=== PATIENT | male | born 1935 | race Hispanic/Latino ===

== ENCOUNTER 2021-06-05 08:58 | Inpatient (IN) | payer OTHER ==
[~2021-06-05] VITALS: Ht 175.3 cm; Wt 65.8 kg
[~2021-06-05 08:58] MED LIST: ACET-66 PO; ASPI-556 PO; FOLI1TAB15 PO; LISI10TA24 PO; METF-444 PO; MONT10TA32 PO; PANT40TA54 PO; TRAM50TA4 PO
[2021-06-05 09:09] VITALS: BP 133/66
[2021-06-05] MEDS ORDERED: TRAMADOL HCL 50 MG TABLET ONE (09:46)
[2021-06-05] MEDS ORDERED: TRAMADOL HCL 50 MG TABLET PO ONE (10:00)
[2021-06-05] MEDS ORDERED: SITA50TA PO (10:13)
[2021-06-05] MEDS ORDERED: LOVA40TA2 PO (10:13)
[2021-06-05] MEDS ORDERED: FERS325 PO (10:13)
[2021-06-05] MEDS ORDERED: DONE5TAB33 PO ×2 (10:13→13:27)
[2021-06-05] MEDS ORDERED: LISI2.5T13 PO (10:13)
[2021-06-05 10:49] LABS: BASOPHILS % (AUTO) 0.4 % (0.0-5.0); EOSINOPHILS % (AUTO) 0.2 % (0.0-8.0); HEMATOCRIT 34.4 % (42-54); LYMPHOCYTES % (AUTO) 8.6 % (21.0-51.0); MEAN CORPUSCULAR HEMOGLOBIN 31.2 pg (27.0-33.0); MEAN CORPUSCULAR HGB CONC 33.4 g/dL (32.0-36.0); MEAN CORPUSCULAR VOLUME 93.2 fL (79-99); MONOCYTES % (AUTO) 7.6 % (3.0-13.0); NEUTROPHILS % (AUTO) 82.9 % (40.0-77.0); PLATELET COUNT (AUTO) 187 K/uL (130-400); RED BLOOD CELL COUNT(AUTO) 3.69 MIL/uL (4.50-6.20); WHITE BLOOD COUNT (AUTO) 9.5 K/uL (4.8-10.8)
[2021-06-05 10:58] LABS: INR 1.09 (0.85-1.15); PROTHROMBIN TIME 11.8 SEC (9.6-11.6)
[2021-06-05 10:59] LABS: CARBON DIOXIDE 27 mmol/L (21-32); CHLORIDE 101 mmol/L (101-111); CREATININE 1.1 mg/dL (0.5-1.5); GLOMERULAR FILTR. RATE CALC 67 mL/min (>60); GLUCOSE,RANDOM 202 mg/dL (70-105); POTASSIUM 4.4 mmol/L (3.5-5.1); SODIUM SERUM 138 mmol/L (136-145); UREA NITROGEN, BLOOD 26 mg/dL (7-18)
[2021-06-05 11:10] VITALS: BP 146/75
[2021-06-05 11:13] LABS: ALANINE AMINOTRANSFERASE 30 U/L (12-78); ALBUMIN 3.8 g/dL (3.5-5.0); ASPARTATE AMINOTRANSFERASE 33 U/L (10-37); BILIRUBIN,TOTAL 1.5 mg/dL (0.2-1.0); CREATINE KINASE, TOTAL 338 U/L (21-232); MYOGLOBIN 162 ng/mL (10-92); TOTAL PROTEIN, SERUM 7.4 g/dL (6.0-8.3); TROPONIN I < 0.04 ng/mL (0.00-0.06)
[2021-06-05] MEDS ORDERED: UMEC62.5 IH (13:27)
[2021-06-05] MEDS ORDERED: FLUT1AER IH (13:27)
[2021-06-05] MEDS ORDERED: ALBU8.5H8 IH (13:27)
[2021-06-05] MEDS ORDERED: TRAM50TA4 PO (13:27)
[2021-06-05] MEDS ORDERED: ONDANSETRON 4MG INJ IVP PRN (15:30)
[2021-06-05] MEDS ORDERED: MORPHINE 2 MG SYG IVP PRN (15:30)
[2021-06-05] MEDS ORDERED: DEXTROSE 50%-WATER 50 ML DISP.SYRIN IV PRN ×2 (15:30→19:30)
[2021-06-05] MEDS ORDERED: ACETAMINOPHEN 325 MG TAB PO PRN ×3 (15:30→19:30)
[2021-06-05] MEDS ORDERED: GLUCAGON 1MG KIT 1 MG ML IM PRN ×2 (15:30→19:30)
[2021-06-05] MEDS: 0.9%NACL 1000ML 1,000 ML IV SCH (15:31)
[2021-06-05] MEDS ORDERED: INSULIN R PO SS1 SQ SCH (16:30)
[2021-06-05 17:48] VITALS: BP 126/60
[2021-06-05 18:38] VITALS: BP 133/77
[2021-06-05] MEDS ORDERED: POTASSIUM CHLORIDE 10% ELIXIR 20 MEQ/15 ML UDCUP PO PRN (19:30)
[2021-06-05] MEDS ORDERED: KCL 20 MEQ ERTAB PO PRN (19:30)
[2021-06-05] MEDS ORDERED: MAG/ALUM/SIMETH 30 ML UDCUP PO PRN (19:30)
[2021-06-05] MEDS ORDERED: DiphenhydrAMINE HCL 50 MG/ML VIAL IV PRN (19:30)
[2021-06-05] MEDS ORDERED: DIPHENHYDRAMINE HCL 25 MG CAPSULE PO PRN (19:30)
[2021-06-05] MEDS ORDERED: LIDOCAINE HCL-MPF 1% 2ML VIAL IV PRN (19:30)
[2021-06-05] MEDS ORDERED: POTASSIUM CHLORIDE 20MEQ/100ML 100 ML IV PRN (19:30)
[2021-06-05 20:00] VITALS: BP 114/66
[2021-06-05] MEDS ORDERED: ALBUTEROL INHALER 90MCG/INH IH PRN (20:00)
[2021-06-05] MEDS: INSULIN HUMULIN R 100 UNIT/ML 3ML SQ SCH (21:00)
[2021-06-05] MEDS: LISINOPRIL 2.5 MG TABLET PO SCH (21:41)
[2021-06-05] MEDS: GABAPENTIN 100 MG CAPSULE PO SCH (21:41)
[2021-06-05] MEDS: METFORMIN HCL 500 MG TABLET PO SCH (21:41)
[2021-06-05 21:53] LABS: APPEARANCE,URINE Clear (CLEAR); BILIRUBIN,URINE Negative (NEGATIVE); COLOR,URINE Yellow (YELLOW); GLUCOSE, URINE (UA) 500 mg/dL (NEGATIVE); KETONES,URINE Trace mg/dL (NEGATIVE); LEUKOCYTE ESTERASE ,URINE Negative (NEGATIVE); NITRATE,URINE Negative (NEGATIVE); OCCULT BLOOD,URINE Negative (NEGATIVE); PH,URINE 5.5 (5.0-8.0); PROTEIN,URINE Negative (NEGATIVE)
[2021-06-05 22:06] LABS: BACTERIA,URINE None Seen /HPF (None Seen); RBC,URINE None Seen /HPF (0-1); SQUAMOUS EPITHELIAL CELL,UR None Seen /HPF (0-2); WBC,URINE 0-1 /HPF (0-1)
[2021-06-06] VITALS: BP 116/47
[2021-06-06] MEDS: 0.9%NACL 1000ML 1,000 ML IV SCH ×2 (03:25→03:59)
[2021-06-06 05:00] VITALS: BP 117/63
[2021-06-06 05:37] LABS: HEMATOCRIT 35.3 % (42-54); MEAN CORPUSCULAR HEMOGLOBIN 30.9 pg (27.0-33.0); MEAN CORPUSCULAR HGB CONC 32.3 g/dL (32.0-36.0); MEAN CORPUSCULAR VOLUME 95.7 fL (79-99); RED BLOOD CELL COUNT(AUTO) 3.69 MIL/uL (4.50-6.20); RED CELL DISTRIBUTION WIDTH 13.2 % (11.0-15.5); WHITE BLOOD COUNT (AUTO) 7.8 K/uL (4.8-10.8)
[2021-06-06 05:50] LABS: CREATININE 0.9 mg/dL (0.5-1.5); POTASSIUM 3.7 mmol/L (3.5-5.1)
[2021-06-06] MEDS: INSULIN HUMULIN R 100 UNIT/ML 3ML SQ SCH ×4 (06:15→21:00)
[2021-06-06 08:00] VITALS: BP 111/59
[2021-06-06] MEDS: PANTOPRAZOLE 40 MG TAB DR PO SCH (08:18)
[2021-06-06] MEDS: FOLIC ACID 1 MG TABLET PO SCH (08:18)
[2021-06-06] MEDS: SIMVASTATIN 10 MG TABLET PO SCH (08:18)
[2021-06-06] MEDS: DONEPEZIL HCL 5 MG TAB PO SCH (08:18)
[2021-06-06] MEDS: GABAPENTIN 100 MG CAPSULE PO SCH ×4 (08:19→21:13)
[2021-06-06] MEDS: FERROUS SULFATE 325 MG TABLET.DR PO SCH (08:19)
[2021-06-06] MEDS: ASPIRIN 81 MG EC TAB PO SCH (08:19)
[2021-06-06] MEDS: METFORMIN HCL 500 MG TABLET PO SCH ×2 (08:19→21:13)
[2021-06-06] MEDS: MONTELUKAST SODIUM 10 MG TAB PO SCH (08:19)
[2021-06-06] MEDS: BREO ELLIPTA 100-25 MCG INH IH SCH (08:20)
[2021-06-06] MEDS: ENOXAPARIN SODIUM 30 MG/0.3 ML SQ SCH (08:20)
[2021-06-06] MEDS: TRAMADOL HCL 50 MG TABLET PO PRN ×2 (08:56→17:40)
[2021-06-06] MEDS ORDERED: LACTULOSE 20 GM/30 ML UDCUP PO PRN (09:00)
[2021-06-06] MEDS: LIDOCAINE 5% TOPICAL PATCH TP SCH (11:37)
[2021-06-06] MEDS: POLYETHYLENE GLYCOL 3350 17 GM POWD.PACK PO SCH (11:37)
[2021-06-06 11:57] VITALS: BP 92/57
[2021-06-06] MEDS: CALCITONIN 3.7 ML AEROSOL NS SCH (15:48)
[2021-06-06 16:00] VITALS: BP 116/65
[2021-06-06 20:00] VITALS: BP 114/60
[2021-06-06] MEDS: LISINOPRIL 2.5 MG TABLET PO SCH (21:13)
[2021-06-07] VITALS (7 sets, daily range): BP systolic 118–149; BP diastolic 63–77
[2021-06-07] MEDS: 0.9%NACL 1000ML 1,000 ML IV SCH ×2 (03:46→20:50)
[2021-06-07] MEDS: INSULIN HUMULIN R 100 UNIT/ML 3ML SQ SCH ×4 (06:12→20:12)
[2021-06-07] MEDS: TRAMADOL HCL 50 MG TABLET PO PRN ×2 (06:46→20:17)
[2021-06-07] MEDS: DONEPEZIL HCL 5 MG TAB PO SCH (08:29)
[2021-06-07] MEDS: FOLIC ACID 1 MG TABLET PO SCH (08:30)
[2021-06-07] MEDS: GABAPENTIN 100 MG CAPSULE PO SCH ×3 (08:30→20:11)
[2021-06-07] MEDS: METFORMIN HCL 500 MG TABLET PO SCH ×2 (08:30→20:11)
[2021-06-07] MEDS: MONTELUKAST SODIUM 10 MG TAB PO SCH (08:30)
[2021-06-07] MEDS: POLYETHYLENE GLYCOL 3350 17 GM POWD.PACK PO SCH (08:31)
[2021-06-07] MEDS: FERROUS SULFATE 325 MG TABLET.DR PO SCH (08:31)
[2021-06-07] MEDS: ASPIRIN 81 MG EC TAB PO SCH (08:31)
[2021-06-07] MEDS: LIDOCAINE 5% TOPICAL PATCH TP SCH (08:31)
[2021-06-07] MEDS: SIMVASTATIN 10 MG TABLET PO SCH (08:31)
[2021-06-07] MEDS: PANTOPRAZOLE 40 MG TAB DR PO SCH (08:31)
[2021-06-07] MEDS: ENOXAPARIN SODIUM 30 MG/0.3 ML SQ SCH (08:32)
[2021-06-07] MEDS: BREO ELLIPTA 100-25 MCG INH IH SCH (08:32)
[2021-06-07] MEDS: CALCITONIN 3.7 ML AEROSOL NS SCH (08:34)
[2021-06-07] MEDS ORDERED: BISACODYL 10 MG SUPP.RECT RC PRN (10:00)
[2021-06-07] MEDS ORDERED: LACTULOSE 20 GM/30 ML UDCUP PO PRN (10:00)
[2021-06-07] MEDS ORDERED: LACT PO (10:02)
[2021-06-07] MEDS ORDERED: LIDOP TP (10:02)
[2021-06-07] MEDS ORDERED: POLY17PO4 PO (10:02)
[2021-06-07] MEDS ORDERED: TRAM50TA4 PO (10:02)
[2021-06-07] MEDS ORDERED: GABA300S PO (10:04)
[2021-06-07] MEDS ORDERED: CALC400I IM (10:07)
[2021-06-07] MEDS: LISINOPRIL 2.5 MG TABLET PO SCH (20:11)
[2021-06-08 03:47] VITALS: BP 129/68
[2021-06-08] MEDS: INSULIN HUMULIN R 100 UNIT/ML 3ML SQ SCH ×4 (06:18→20:11)
[2021-06-08 08:00] VITALS: BP 141/74
[2021-06-08] MEDS: BREO ELLIPTA 100-25 MCG INH IH SCH (09:00)
[2021-06-08] MEDS: 0.9%NACL 1000ML 1,000 ML IV SCH (10:10)
[2021-06-08] MEDS: SIMVASTATIN 10 MG TABLET PO SCH (10:45)
[2021-06-08] MEDS: PANTOPRAZOLE 40 MG TAB DR PO SCH (10:45)
[2021-06-08] MEDS: METFORMIN HCL 500 MG TABLET PO SCH ×2 (10:45→20:11)
[2021-06-08] MEDS: POLYETHYLENE GLYCOL 3350 17 GM POWD.PACK PO SCH (10:46)
[2021-06-08] MEDS: ENOXAPARIN SODIUM 30 MG/0.3 ML SQ SCH (10:46)
[2021-06-08] MEDS: FOLIC ACID 1 MG TABLET PO SCH (10:46)
[2021-06-08] MEDS: DONEPEZIL HCL 5 MG TAB PO SCH (10:46)
[2021-06-08] MEDS: MONTELUKAST SODIUM 10 MG TAB PO SCH (10:46)
[2021-06-08] MEDS: GABAPENTIN 100 MG CAPSULE PO SCH ×3 (10:46→20:08)
[2021-06-08] MEDS: FERROUS SULFATE 325 MG TABLET.DR PO SCH (10:46)
[2021-06-08] MEDS: LIDOCAINE 5% TOPICAL PATCH TP SCH (10:46)
[2021-06-08] MEDS: ASPIRIN 81 MG EC TAB PO SCH (10:46)
[2021-06-08] MEDS: CALCITONIN 3.7 ML AEROSOL NS SCH (10:50)
[2021-06-08 12:00] VITALS: BP 154/69
[2021-06-08 16:28] VITALS: BP 129/96
[2021-06-08] MEDS: TRAMADOL HCL 50 MG TABLET PO PRN (17:33)
[2021-06-08] MEDS: LISINOPRIL 2.5 MG TABLET PO SCH (20:11)
[2021-06-08 20:32] VITALS: BP 128/81
[2021-06-08 23:46] VITALS: BP 114/62
[2021-06-09 04:00] VITALS: BP 123/76
[2021-06-09] MEDS: INSULIN HUMULIN R 100 UNIT/ML 3ML SQ SCH ×2 (05:47→14:35)
[2021-06-09 08:00] VITALS: BP 123/67
[2021-06-09] MEDS: BREO ELLIPTA 100-25 MCG INH IH SCH (09:00)
[2021-06-09] MEDS: DONEPEZIL HCL 5 MG TAB PO SCH (09:10)
[2021-06-09] MEDS: ASPIRIN 81 MG EC TAB PO SCH (09:10)
[2021-06-09] MEDS: GABAPENTIN 100 MG CAPSULE PO SCH ×2 (09:10→14:22)
[2021-06-09] MEDS: FERROUS SULFATE 325 MG TABLET.DR PO SCH (09:10)
[2021-06-09] MEDS: FOLIC ACID 1 MG TABLET PO SCH (09:10)
[2021-06-09] MEDS: SIMVASTATIN 10 MG TABLET PO SCH (09:19)
[2021-06-09] MEDS: POLYETHYLENE GLYCOL 3350 17 GM POWD.PACK PO SCH (09:19)
[2021-06-09] MEDS: PANTOPRAZOLE 40 MG TAB DR PO SCH (09:19)
[2021-06-09] MEDS: MONTELUKAST SODIUM 10 MG TAB PO SCH (09:19)
[2021-06-09] MEDS: METFORMIN HCL 500 MG TABLET PO SCH (09:19)
[2021-06-09] MEDS: LIDOCAINE 5% TOPICAL PATCH TP SCH (09:20)
[2021-06-09] MEDS: ENOXAPARIN SODIUM 30 MG/0.3 ML SQ SCH (09:20)
[2021-06-09] MEDS: 0.9%NACL 1000ML 1,000 ML IV SCH (10:10)
[2021-06-09 12:00] VITALS: BP 90/53
== END 2021-06-09 17:28 | DRG 552 ==
LOC: EDH 08:58 → EDHIP 12:41 → OBSVTOIN 12:41 → 3BH 18:32
PROVIDERS: ADMIT Internal Medicine; ATTEND Internal Medicine
DX: S32.029A Unspecified fracture of second lumbar vertebra, initial encounter for closed fracture (principal); F11.20 Opioid dependence, uncomplicated; K21.9 Gastro-esophageal reflux disease without esophagitis; J44.9 Chronic obstructive pulmonary disease, unspecified; I12.9 Hypertensive chronic kidney disease with stage 1 through stage 4 chronic kidney disease, or unspecified chronic kidney disease; H90.5 Unspecified sensorineural hearing loss; E78.5 Hyperlipidemia, unspecified; D63.8 Anemia in other chronic diseases classified elsewhere; E11.22 Type 2 diabetes mellitus with diabetic chronic kidney disease; E11.42 Type 2 diabetes mellitus with diabetic polyneuropathy; E11.51 Type 2 diabetes mellitus with diabetic peripheral angiopathy without gangrene; F03.90 Unspecified dementia, unspecified severity, without behavioral disturbance, psychotic disturbance, mood disturbance, and anxiety; I65.29 Occlusion and stenosis of unspecified carotid artery; I70.8 Atherosclerosis of other arteries; J30.9 Allergic rhinitis, unspecified; J32.9 Chronic sinusitis, unspecified; M17.11 Unilateral primary osteoarthritis, right knee; M47.9 Spondylosis, unspecified; M48.061 Spinal stenosis, lumbar region without neurogenic claudication; N18.2 Chronic kidney disease, stage 2 (mild); Z20.822 Contact with and (suspected) exposure to COVID-19; W11.XXXA Fall on and from ladder, initial encounter; Y93.89 Activity, other specified; Y92.096 Garden or yard of other non-institutional residence as the place of occurrence of the external cause; Y99.8 Other external cause status; Z88.2 Allergy status to sulfonamides; Z88.8 Allergy status to other drugs, medicaments and biological substances; Z79.51 Long term (current) use of inhaled steroids; Z79.82 Long term (current) use of aspirin; Z79.84 Long term (current) use of oral hypoglycemic drugs; Z79.899 Other long term (current) drug therapy; Z85.118 Personal history of other malignant neoplasm of bronchus and lung; Z83.3 Family history of diabetes mellitus; Z82.5 Family history of asthma and other chronic lower respiratory diseases; Z82.49 Family history of ischemic heart disease and other diseases of the circulatory system; Z82.3 Family history of stroke; Z82.0 Family history of epilepsy and other diseases of the nervous system
CPT/HCPCS: 36415; 70450; 71045; 72125; 72148; 74176; 80048; 80053; 81001; 82550; 82948; 83874; 84484; 85025; 85027; 85610; 87635; 93005; 97039; G0378; J1650; J7030

== ENCOUNTER → 2022-12-03 | Outpatient (CLI) | payer OTHER ==
[~2022-12-03] MED LIST changes: +ALBU8.5H8 IH; +CALC400I IM; +DONE5TAB33 PO; +FERS325 PO; +FLUT1AER IH; +GABA300S PO; +LACT PO; +LIDOP TP; -LISI10TA24 PO; +LISI2.5T13 PO; +LOVA40TA2 PO; +MONT-39 PO; -MONT10TA32 PO; +POLY17PO4 PO; +SITA50TA PO; +UMEC62.5 IH
== END | disposition home or self-care (01) ==
LOC: RAH 10:18
PROVIDERS: ATTEND Internal Medicine
DX: M17.11 Unilateral primary osteoarthritis, right knee (principal); M25.561 Pain in right knee; W19.XXXA Unspecified fall, initial encounter
CPT/HCPCS: 73560

== ENCOUNTER 2023-04-15 20:27 | Emergency (ER) | payer OTHER ==
[~2023-04-15] VITALS: Ht 162.6 cm; Wt 62.1 kg
[~2023-04-15 20:27] MED LIST changes: -GABA300S PO; +GABA300S3 PO
[2023-04-15 20:43] VITALS: BP 119/78
[2023-04-15] MEDS ORDERED: DIPH,PERTUSS(ACELL),TET VAC/PF 0.5 ML VIAL IM ONE (21:00)
[2023-04-15] MEDS ORDERED: TETANUS/DIPHTHERIA TOXOID [ADULT] 0.5 ML VIAL IM ONE (21:02)
== END 2023-04-15 21:10 | disposition home or self-care (01) ==
LOC: EDH 20:27
DX: S51.812A Laceration without foreign body of left forearm, initial encounter (principal); X58.XXXA Exposure to other specified factors, initial encounter; Y93.89 Activity, other specified; Y92.89 Other specified places as the place of occurrence of the external cause; Y99.8 Other external cause status
CPT/HCPCS: 12002; 90471; 90714

== ENCOUNTER 2023-11-26 04:40 | Observation (INO) | payer OTHER, MEDICARE ==
[~2023-11-26] VITALS: Ht 170.2 cm; Wt 61.6 kg
[2023-11-26] VITALS (7 sets, daily range): BP systolic 129–165; BP diastolic 69–83; PULSE 60–75; RESP 18–20; O2SAT 97–99
[2023-11-26 05:06] LABS: BASOPHILS # (AUTO) 0.11 K/uL (0.00-0.20); BASOPHILS % (AUTO) 1.7 % (0.0-5.0); EOSINOPHILS # (AUTO) 0.52 K/uL (0.00-0.70); EOSINOPHILS % (AUTO) 7.9 % (0.0-8.0); HEMATOCRIT 28.2 % (42-54); IMMATURE GRANULOCYTE ABSOLUTE 0.02 K/uL (0-1); LYMPHOCYTES # (AUTO) 1.4 K/uL (1.0-4.8); LYMPHOCYTES % (AUTO) 21.8 % (21.0-51.0); MEAN CORPUSCULAR HEMOGLOBIN 29.9 pg (27.0-33.0); MEAN CORPUSCULAR VOLUME 90.7 fL (79-99); MONOCYTES # (AUTO) 0.7 K/uL (0.1-1.0); MONOCYTES % (AUTO) 11.2 % (3.0-13.0); NEUTROPHILS # (AUTO) 3.8 K/uL (1.8-7.7); NEUTROPHILS % (AUTO) 57.1 % (40.0-77.0); PLATELET COUNT (AUTO) 250 K/uL (130-400); RED BLOOD CELL COUNT(AUTO) 3.11 MIL/uL (4.50-6.20); WHITE BLOOD COUNT (AUTO) 6.6 K/uL (4.8-10.8)
[2023-11-26 05:16] LABS: CREATININE 1.1 mg/dL (0.5-1.5); POTASSIUM 4.1 mmol/L (3.5-5.1)
[2023-11-26 05:20] LABS: INR <= 0.93 (0.85-1.15); PROTHROMBIN TIME 10.8 SEC (9.6-11.6)
[2023-11-26 05:22] LABS: PARTIAL THROMBOPLASTIN TIME 29.3 SEC (26.3-35.5)
[2023-11-26] MEDS: ONDANSETRON 4MG INJ IVP ONE (05:22)
[2023-11-26] MEDS: FAMOTIDINE 20MG VIAL IV ONE (05:22)
[2023-11-26] MEDS: PANTOPRAZOLE 40 MG/VIAL IVP ONE (05:22)
[2023-11-26] MEDS: 0.9%NACL 1000ML 1,000 ML IV SCH ×2 (05:22→10:50)
[2023-11-26 05:29] LABS: ALBUMIN 3.7 g/dL (3.5-5.0); BILIRUBIN,TOTAL 0.5 mg/dL (0.2-1.0); TOTAL PROTEIN, SERUM 7.1 g/dL (6.0-8.3)
[2023-11-26] MEDS ORDERED: IOHEXOL-350 75 ML VIAL IV ONE (06:13)
[2023-11-26 08:16] LABS: APPEARANCE,URINE CLEAR (CLEAR); BILIRUBIN,URINE NEGATIVE (NEGATIVE); COLOR,URINE COLORLESS (YELLOW); GLUCOSE, URINE (UA) 30 mg/dL (NEGATIVE); KETONES,URINE NEGATIVE (NEGATIVE); LEUKOCYTE ESTERASE ,URINE NEGATIVE Leu/uL (NEGATIVE); NITRATE,URINE NEGATIVE (NEGATIVE); OCCULT BLOOD,URINE NEGATIVE (NEGATIVE); PH,URINE 5.5 (5.0-8.0); PROTEIN,URINE NEGATIVE (NEGATIVE); UROBILINOGEN,URINE 0.2 mg/dL (0.2-1.0)
[2023-11-26 08:19] LABS: ADD UA MICROSCOPIC YES
[2023-11-26 08:21] LABS: RBC,URINE 0-1 /HPF (0-1); WBC,URINE 0-1 /HPF (0-1)
[2023-11-26 08:22] LABS: BACTERIA,URINE None Seen /HPF (None Seen)
[2023-11-26] MEDS ORDERED: ONDANSETRON 4MG INJ IVP PRN (10:00)
[2023-11-26] MEDS ORDERED: ACETAMINOPHEN 325 MG TAB PO PRN (10:00)
[2023-11-26 10:33] LABS: HEMATOCRIT 27.7 % (42-54)
[2023-11-26] MEDS ORDERED: ALBU2.5V2 IH (11:17)
[2023-11-26] MEDS ORDERED: ALBUTEROL 0.083% 2.5 MG/3 ML INH IH PRN (11:30)
[2023-11-26] MEDS ORDERED: POTASSIUM CHLORIDE 10% ELIXIR 20 MEQ/15 ML UDCUP PO PRN (12:00)
[2023-11-26] MEDS ORDERED: GLUCAGON 1MG KIT 1 MG ML IM PRN (12:00)
[2023-11-26] MEDS ORDERED: LACTULOSE 20 GM/30 ML UDCUP PO PRN (12:00)
[2023-11-26] MEDS ORDERED: HYDRALAZINE HCL 10 MG TABLET PO PRN (12:00)
[2023-11-26] MEDS ORDERED: DEXTROSE 50%-WATER 50 ML DISP.SYRIN IV PRN (12:00)
[2023-11-26] MEDS ORDERED: GUAIFENESIN-DM 200/20 MG 10 ML PO PRN (12:00)
[2023-11-26] MEDS ORDERED: MAG/ALUM/SIMETH 30 ML UDCUP PO PRN (12:00)
[2023-11-26] MEDS ORDERED: KCL 20 MEQ ERTAB PO PRN (12:00)
[2023-11-26] MEDS ORDERED: HYDRALAZINE 20MG/ML VIAL IV PRN (12:00)
[2023-11-26] MEDS ORDERED: POTASSIUM CHLORIDE 20MEQ/100ML 100 ML IV PRN ×2 (12:00)
[2023-11-26 16:53] LABS: HEMATOCRIT 28.5 % (42-54)
[2023-11-26] MEDS: ALBUTEROL 0.083% 2.5 MG/3 ML INH IH SCH (19:17)
[2023-11-26] MEDS: PANTOPRAZOLE 40 MG/VIAL IVP SCH (20:53)
[2023-11-27] VITALS (15 sets, daily range): BP systolic 115–154; BP diastolic 58–78; PULSE 60–89; RESP 0–18; O2SAT 98
[2023-11-27] MEDS: FOLIC ACID 1 MG TABLET PO SCH (09:31)
[2023-11-27 10:28] LABS: HEMATOCRIT 30.9 % (42-54); MEAN CORPUSCULAR HEMOGLOBIN 29.1 pg (27.0-33.0); MEAN CORPUSCULAR VOLUME 90.9 fL (79-99); RED BLOOD CELL COUNT(AUTO) 3.4 MIL/uL (4.50-6.20); RED CELL DISTRIBUTION WIDTH 13.8 % (11.0-15.5); WHITE BLOOD COUNT (AUTO) 6.4 K/uL (4.8-10.8)
[2023-11-27 10:37] LABS: POTASSIUM 4.3 mmol/L (3.5-5.1)
[2023-11-27] MEDS ORDERED: LIDOCAINE HCL 1% 20 ML VIAL ONE (13:00)
[2023-11-27] MEDS ORDERED: PROPOFOL 10 MG/ML 20ML VIAL IV ONE (13:00)
[2023-11-27] MEDS ORDERED: EPHEDRINE SULFATE 50 MG/ML AMPULE ONE (13:15)
[2023-11-27] MEDS ORDERED: PANT40TA54 PO (17:36)
[2023-11-28] MEDS ORDERED: PANTOPRAZOLE 40 MG TAB DR PO SCH (09:00)
== END 2023-11-27 18:20 | disposition home or self-care (01) ==
LOC: EDH 04:40 → INTOOBSV 09:41 → EDHIP 09:41 → 3CH 11:40 → 3BH 19:00
PROVIDERS: ADMIT Internal Medicine; ATTEND Internal Medicine
DX: K92.0 Hematemesis (principal); K21.00 Gastro-esophageal reflux disease with esophagitis, without bleeding; K44.9 Diaphragmatic hernia without obstruction or gangrene; K29.00 Acute gastritis without bleeding; D62 Acute posthemorrhagic anemia; I12.9 Hypertensive chronic kidney disease with stage 1 through stage 4 chronic kidney disease, or unspecified chronic kidney disease; E11.22 Type 2 diabetes mellitus with diabetic chronic kidney disease; N18.2 Chronic kidney disease, stage 2 (mild); D63.1 Anemia in chronic kidney disease; J44.9 Chronic obstructive pulmonary disease, unspecified; E78.5 Hyperlipidemia, unspecified; I73.9 Peripheral vascular disease, unspecified; M48.061 Spinal stenosis, lumbar region without neurogenic claudication; M19.90 Unspecified osteoarthritis, unspecified site; F03.90 Unspecified dementia, unspecified severity, without behavioral disturbance, psychotic disturbance, mood disturbance, and anxiety; E11.51 Type 2 diabetes mellitus with diabetic peripheral angiopathy without gangrene; H90.5 Unspecified sensorineural hearing loss; I48.91 Unspecified atrial fibrillation; I70.8 Atherosclerosis of other arteries; K29.60 Other gastritis without bleeding; K29.80 Duodenitis without bleeding; Z79.899 Other long term (current) drug therapy; Z79.51 Long term (current) use of inhaled steroids; Z85.118 Personal history of other malignant neoplasm of bronchus and lung; Z87.19 Personal history of other diseases of the digestive system
CPT/HCPCS: 96374; 85014 ×2; 85018 ×2; 94664; 96376 ×2; 96361 ×2; 96375; 99285; 84484; 80053; 85025; 85610; 85730; 86850; 86900; 86901; 82270; 81001; 36415 ×2; 71045; 74177; 93005; 94640 ×2; 80048; 85027; 88305; 88312; 43239; G0378 ×28; J3490 ×2; J7030; J2405; C9113 ×3; Q9967; J2704; A4223; A4222; A4606

== ENCOUNTER → 2024-05-21 | Outpatient (CLI) | payer OTHER, MEDICARE ==
[~2024-05-21] MED LIST changes: +ALBU2.5V2 IH; -ASPI-556 PO; -CALC400I IM; -DONE5TAB33 PO; -GABA300S3 PO; -LACT PO; -LIDOP TP; -LISI2.5T13 PO; -METF-444 PO; -MONT-39 PO; -POLY17PO4 PO; -TRAM50TA4 PO; -UMEC62.5 IH
[2024-05-21 13:54] LABS: BASOPHILS # (AUTO) 0.11 K/uL (0.00-0.20); BASOPHILS % (AUTO) 1.5 % (0.0-5.0); EOSINOPHILS # (AUTO) 0.12 K/uL (0.00-0.70); EOSINOPHILS % (AUTO) 1.6 % (0.0-8.0); HEMATOCRIT 33.8 % (42-54); IMMATURE GRANULOCYTE ABSOLUTE 0.02 K/uL (0-1); LYMPHOCYTES # (AUTO) 1.2 K/uL (1.0-4.8); LYMPHOCYTES % (AUTO) 16.4 % (21.0-51.0); MEAN CORPUSCULAR HEMOGLOBIN 29.5 pg (27.0-33.0); MEAN CORPUSCULAR HGB CONC 32.2 g/dL (32.0-36.0); MEAN CORPUSCULAR VOLUME 91.6 fL (79-99); MONOCYTES # (AUTO) 0.6 K/uL (0.1-1.0); NEUTROPHILS # (AUTO) 5.4 K/uL (1.8-7.7); NEUTROPHILS % (AUTO) 72.2 % (40.0-77.0); PLATELET COUNT (AUTO) 263 K/uL (130-400); RED BLOOD CELL COUNT(AUTO) 3.69 MIL/uL (4.50-6.20); RED CELL DISTRIBUTION WIDTH 14.4 % (11.0-15.5); WHITE BLOOD COUNT (AUTO) 7.5 K/uL (4.8-10.8)
== END | disposition home or self-care (01) ==
LOC: RAH 13:04
PROVIDERS: ATTEND Internal Medicine
DX: M17.11 Unilateral primary osteoarthritis, right knee (principal); M11.261 Other chondrocalcinosis, right knee; M79.89 Other specified soft tissue disorders; N18.2 Chronic kidney disease, stage 2 (mild); M25.561 Pain in right knee
CPT/HCPCS: 36415; 73562; 85025

== ENCOUNTER 2024-06-20 14:25 | Observation (INO) | payer OTHER, MEDICARE ==
[~2024-06-20] VITALS: Ht 165.1 cm; Wt 58.6 kg
[2024-06-20 16:26] LABS: BASOPHILS % (AUTO) 1.6 % (0.0-5.0); EOSINOPHILS # (AUTO) 0.09 K/uL (0.00-0.70); EOSINOPHILS % (AUTO) 1.4 % (0.0-8.0); HEMATOCRIT 36.1 % (42-54); IMMATURE GRANULOCYTE ABSOLUTE 0.02 K/uL (0-1); LYMPHOCYTES # (AUTO) 1.2 K/uL (1.0-4.8); LYMPHOCYTES % (AUTO) 18.6 % (21.0-51.0); MEAN CORPUSCULAR HEMOGLOBIN 30.4 pg (27.0-33.0); MEAN CORPUSCULAR HGB CONC 33.5 g/dL (32.0-36.0); MEAN CORPUSCULAR VOLUME 90.7 fL (79-99); MONOCYTES # (AUTO) 0.5 K/uL (0.1-1.0); MONOCYTES % (AUTO) 7.5 % (3.0-13.0); NEUTROPHILS # (AUTO) 4.4 K/uL (1.8-7.7); NEUTROPHILS % (AUTO) 70.6 % (40.0-77.0); PLATELET COUNT (AUTO) 231 K/uL (130-400); RED BLOOD CELL COUNT(AUTO) 3.98 MIL/uL (4.50-6.20); RED CELL DISTRIBUTION WIDTH 13.9 % (11.0-15.5); WHITE BLOOD COUNT (AUTO) 6.3 K/uL (4.8-10.8)
[2024-06-20 16:39] LABS: CREATININE 1.2 mg/dL (0.5-1.3); POTASSIUM 4.1 mmol/L (3.5-5.1)
[2024-06-20] MEDS ORDERED: ondanSETRON 4MG INJ IVP PRN (19:30)
[2024-06-20] MEDS ORDERED: acetaMINOPHEN 325 MG TAB PO PRN (19:30)
[2024-06-20] MEDS: 0.9%NACL 1000ML 1,000 ML IV SCH (20:35)
[2024-06-20] MEDS: BisaCODYL 10 MG SUPP.RECT RC ONE (20:35)
[2024-06-20 21:24] VITALS: O2SAT 100
[2024-06-21] VITALS: BP 130/52; PULSE 57; RESP 18; TEMP 97.8
[2024-06-21] MEDS: LACTULOSE 20 GM/30 ML UDCUP PO PRN (00:12)
[2024-06-21 04:38] VITALS: BP 123/68; RESP 55; TEMP 97.8
[2024-06-21] MEDS ORDERED: ALBUTEROL 0.083% 2.5 MG/3 ML INH IH PRN (08:00)
[2024-06-21] MEDS ORDERED: (Albuterol Sulfate (Proair Hfa) 8.5 GM) IH PRN (08:30)
[2024-06-21] MEDS: LOVASTATIN 40 MG PO SCH (09:00)
[2024-06-21] MEDS: (Sitagliptin Phosphate (Januvia) 50 MG) PO SCH (09:00)
[2024-06-21] MEDS: FLUTICASONE/VILANTEROL 1 EACH AER.POW.BA IH SCH (09:00)
[2024-06-21] MEDS: acetaMINOPHEN 500 MG TABLET PO SCH (10:02)
[2024-06-21] MEDS: FERROUS SULFATE 325 MG TABLET.DR PO SCH (10:03)
[2024-06-21] MEDS: PANTOPrazole 40 MG TAB DR PO SCH (10:03)
[2024-06-21] MEDS: FOLic ACID 1 MG TABLET PO SCH (10:03)
[2024-06-21 10:07] VITALS: O2SAT 99
[2024-06-21 12:00] VITALS: BP 121/79; PULSE 77; RESP 18; TEMP 97.7
[2024-06-21] MEDS ORDERED: DOCU-116 PO (13:07)
[2024-06-21] MEDS ORDERED: POLY17PO4 PO (13:08)
[2024-06-21 15:30] VITALS: BP 120/64; PULSE 53; RESP 18; TEMP 97.3
== END 2024-06-21 15:25 | disposition home or self-care (01) ==
LOC: EDH 14:25 → EDHIP 18:19 → 3BH 22:21
PROVIDERS: ADMIT Internal Medicine; ATTEND Internal Medicine
DX: K56.41 Fecal impaction (principal); M48.061 Spinal stenosis, lumbar region without neurogenic claudication; J44.9 Chronic obstructive pulmonary disease, unspecified; E78.5 Hyperlipidemia, unspecified; J30.9 Allergic rhinitis, unspecified; I12.9 Hypertensive chronic kidney disease with stage 1 through stage 4 chronic kidney disease, or unspecified chronic kidney disease; E11.22 Type 2 diabetes mellitus with diabetic chronic kidney disease; N18.2 Chronic kidney disease, stage 2 (mild); D63.1 Anemia in chronic kidney disease; E11.51 Type 2 diabetes mellitus with diabetic peripheral angiopathy without gangrene; H90.5 Unspecified sensorineural hearing loss; I70.8 Atherosclerosis of other arteries; I65.29 Occlusion and stenosis of unspecified carotid artery; K21.9 Gastro-esophageal reflux disease without esophagitis; M19.90 Unspecified osteoarthritis, unspecified site; N40.0 Benign prostatic hyperplasia without lower urinary tract symptoms; E78.00 Pure hypercholesterolemia, unspecified; F03.90 Unspecified dementia, unspecified severity, without behavioral disturbance, psychotic disturbance, mood disturbance, and anxiety; Z79.51 Long term (current) use of inhaled steroids; Z79.84 Long term (current) use of oral hypoglycemic drugs; Z85.118 Personal history of other malignant neoplasm of bronchus and lung; Z79.899 Other long term (current) drug therapy
CPT/HCPCS: 99284; 80048; 85025; 82270; 36415; 74176; 96360; 96361; G0378 ×21; J7030